=== PATIENT | male | born 1965 | race Caucasian/White ===

== ENCOUNTER 2016-12-23 07:03 | Day surgery (SDC) | payer MEDICARE, OTHER ==
--- NOTE | ~2016-12-23 | EGD ---
EGD REPORT [facility] [address] [place] [address] NAME: PAOLO LU : [birth year] STATUS : REG [facility] [place] PAT#: [id number] AGE: 51 ADM/REG DATE : 12/23/16 MR#: [id number] REPORT SERV DATE: 12/23/16 DICTATED BY: YADIRA CHAMBERS DATE: 12/23/16 REPORT STATUS : Draft TRANSCRIBED BY: [facility] DATE: 12/23/16 Endoscopy Center Patient Name: Paolo Lu Date of : 1965 Attending MD: YADIRA CHAMBERS MD Procedure Date No Time: 12/23/2016 Procedure: Upper GI endoscopy Indications: Epigastric abdominal pain, Dysphagia, Heartburn; Omeprazole 20mg daily. Patient Profile: Informed consent was obtained from the patient by me prior to the procedure. Risks, benefits, and alternatives were discussed including the risk of bleeding, perforation, infection, reaction to medicine, missed lesion, and cardiopulmonary complications. Referring MD: Ela Haddad Medicines: Monitored Anesthesia Care Complications: No immediate complications. Procedure: After obtaining informed consent, the endoscope was passed under direct vision. Throughout the procedure, the patient's blood pressure, pulse, and oxygen saturations were monitored continuously. The GIF H190 [id number] was introduced through the mouth, and advanced to the body of the stomach; solid contents large; endoscope immediately withdrawn. The upper GI endoscopy was accomplished without difficulty. The patient tolerated the procedure well. Findings: A large amount of food (residue) was found in the gastric body. The examined esophagus was normal, irreg z-line. Impression: - A large amount of food (residue) in the stomach. - Normal esophagus, irreg z-line. Recommendation: - Patient has a contact number available for emergencies. The signs and symptoms of potential delayed complications were discussed with the patient. Return to normal activities tomorrow. Written discharge instructions were provided to the patient. - Regular diet. - Continue present medications. - Increase Omeprazole to 20mg bid. - R/s EGD Mem AA; liquid diet 1.5 days. Procedure Code(s): --- Professional --- EGD REPORT [address] [address] NAME: PAOLO LU : [birth year] STATUS : REG [facility]#: [id number] AGE: 51 ADM/REG DATE : 12/23/16 MR#: [id number] REPORT SERV DATE: 12/23/16 DICTATED BY: YADIRA CHAMBERS. DATE: 12/23/16 REPORT STATUS : Draft TRANSCRIBED BY: [employer] DATE: 12/23/16 86687, 52, Esophagogastroduodenoscopy, flexible, transoral; diagnostic, including collection of specimen(s) by brushing or washing, when performed (separate procedure) Diagnosis Code(s): --- Professional --- R10.13, Epigastric pain R13.10, Dysphagia, unspecified R12, Heartburn CPT copyright 2013 [employer]. All rights reserved. The codes documented in this report are preliminary and upon timber bucker review may be revised to meet current compliance requirements. YADIRA CHAMBERS MD 12/23/2016 8:47 AM This report has been signed electronically. Number of Addenda: 0 Note Initiated On: 12/23/2016 8:21 AM Scope Withdrawal Time 0 hours 0 minutes 0 seconds [address] [place] [address]
[~2016-12-23 07:03] MED LIST: DURA50 TOP; MEP50TAB PO; PERCOCET 7.5/321 TAB PO; PERCOCET1 TA2 PO; PERCOCET1 TA3 PO; PR25 PO; PRILO PO; PRIN20 PO; PROSTATE MED PO; SEROQUEL400 MG PO; SUCR PO; XANAX1 MG PO
[2017-03-27] MEDS ORDERED: LEXAPRO10 PO (09:04)
[2017-03-27] MEDS ORDERED: NORV5 PO (09:06)
[2017-03-27] MEDS ORDERED: LINZESS 145 M145 MCG PO (09:17)
== END 2016-12-23 23:59 | disposition home or self-care (01) ==
LOC: DMU 07:03
PROVIDERS: Internal Medicine Gastroenterology
PROC: 0DJ08ZZ Inspection of Upper Intestinal Tract, Via Natural or Artificial Opening Endoscopic (ICD-10-PCS; principal; 2016-12-23 08:30)
DX: R13.10 Dysphagia, unspecified (principal); R10.13 Epigastric pain; R11.2 Nausea with vomiting, unspecified; I10 Essential (primary) hypertension; J44.9 Chronic obstructive pulmonary disease, unspecified; F17.200 Nicotine dependence, unspecified, uncomplicated

== ENCOUNTER 2017-03-28 08:04 | Day surgery (SDC) | payer MEDICARE, SELFPAY ==
--- NOTE | ~2017-03-28 | EGD ---
EGD REPORT [facility] [address] [place]. [address] NAME: PAOLO LU : [birth year] STATUS : REG [facility] [place] PAT#: [id number] AGE: 52 ADM/REG DATE : 03/28/17 MR#: [id number] REPORT SERV DATE: 03/28/17 DICTATED BY: YADIRA CHAMBERS DATE: 03/28/17 REPORT STATUS : Draft TRANSCRIBED BY: [facility] DATE: 03/28/17 Endoscopy Center Patient Name: Paolo Lu Date of : 1965 Attending MD: YADIRA CHAMBERS MD Procedure Date No Time: 03/28/2017 Procedure: Upper GI endoscopy Indications: Heartburn; nausea; duodenal stricture. Patient Profile: Informed consent was obtained from the patient by me prior to the procedure. Risks, benefits, and alternatives were discussed including the risk of bleeding, perforation, infection, reaction to medicine, missed lesion, and cardiopulmonary complications. Referring MD: Ela Haddad Medicines: Monitored Anesthesia Care Complications: No immediate complications. Procedure: Pre-Anesthesia Assessment: - ASA Grade Assessment: III - A patient with severe systemic disease. After obtaining informed consent, the endoscope was passed under direct vision. Throughout the procedure, the patient's blood pressure, pulse, and oxygen saturations were monitored continuously. The GIF H190 [id number] was introduced through the mouth, and advanced to the second part of duodenum. The endoscope was withdrawn with careful examination all mucosal surfaces including retroflexion stomach. The upper GI endoscopy was accomplished without difficulty. The patient tolerated the procedure well. Findings: The 2nd part of the duodenum was normal. A severe post-ulcer deformity was found in the first part of the duodenum at c-sweep. Biopsies were taken with a cold forceps for histology. A TTS dilator was passed through the scope. Dilation with a 10-12 mm balloon dilator was performed; tip of catheter easily maneuvered into 2nd portion prior to dilation. The entire examined stomach was normal. Yamel intact. The examined esophagus was normal. Impression: - Normal 2nd part of the duodenum. - Duodenal deformity. Biopsied. Dilated. - Normal stomach. - Normal esophagus. EGD REPORT [address] [address] NAME: PAOLO LU : [birth year] STATUS : REG [facility] [place] PAT#: [id number] AGE: 52 ADM/REG DATE : 03/28/17 MR#: [id number] REPORT SERV DATE: 03/28/17 DICTATED BY: YADIRA CHAMBERS DATE: 03/28/17 REPORT STATUS : Draft TRANSCRIBED BY: [employer] DATE: 03/28/17 Recommendation: - Patient has a contact number available for emergencies. The signs and symptoms of potential delayed complications were discussed with the patient. Return to normal activities tomorrow. Written discharge instructions were provided to the patient. - Regular diet. - Continue present medications. - Await pathology results. - Take Nexium OTC daily. - Schd f/u visit 3 months. Procedure Code(s): --- Professional --- 47860, Esophagogastroduodenoscopy, flexible, transoral; with dilation of gastric/duodenal stricture(s) (eg, balloon, bougie) 14639, Esophagogastroduodenoscopy, flexible, transoral; with biopsy, single or multiple Diagnosis Code(s): --- Professional --- K31.89, Other diseases of stomach and duodenum R12, Heartburn CPT copyright 2013 [employer]. All rights reserved. The codes documented in this report are preliminary and upon improvement manager review may be revised to meet current compliance requirements. YADIRA CHAMBERS MD 03/28/2017 9:58 AM This report has been signed electronically. Number of Addenda: 0 Note Initiated On: 03/28/2017 9:38 AM Scope Withdrawal Time 0 hours 0 minutes 0 seconds [address] [place] [address]
[~2017-03-28 08:04] MED LIST changes: +LEXAPRO10 PO; +LINZESS 145 M145 MCG PO; +NORV5 PO
== END 2017-03-28 23:59 | disposition home or self-care (01) ==
LOC: DMU 08:04
PROVIDERS: Internal Medicine Gastroenterology
PROC: 0DB98ZX Excision of Duodenum, Via Natural or Artificial Opening Endoscopic, Diagnostic (ICD-10-PCS; principal; 2017-03-28 09:00)
PROC: 0D798ZZ Dilation of Duodenum, Via Natural or Artificial Opening Endoscopic (ICD-10-PCS; 2017-03-28 09:00)
DX: K29.80 Duodenitis without bleeding (principal); I10 Essential (primary) hypertension; J44.9 Chronic obstructive pulmonary disease, unspecified; K21.9 Gastro-esophageal reflux disease without esophagitis; F31.9 Bipolar disorder, unspecified; F41.9 Anxiety disorder, unspecified; F17.210 Nicotine dependence, cigarettes, uncomplicated; H91.90 Unspecified hearing loss, unspecified ear; N20.0 Calculus of kidney; N42.9 Disorder of prostate, unspecified; L40.9 Psoriasis, unspecified; Z88.5 Allergy status to narcotic agent; Z79.899 Other long term (current) drug therapy; Z98.890 Other specified postprocedural states
CPT/HCPCS: 88305; C1726